=== PATIENT | female | born 1950 | race Caucasian/White ===

== ENCOUNTER → 2023-03-06 08:37 | Outpatient (CLI) | payer MEDICARE, SELFPAY ==
--- NOTE | ~2023-03-06 | XR_ITS ---
EXAMINATION: HAND-JOEL ARTHRITIS 3+VIEWS DATE: 03/06/2023 09:30 INDICATION: Rheumatoid arthritis TECHNIQUE: Posteroanterior, lateral, and oblique views of the left and of the right hands as well as a ballcatchers view of both hands were obtained. COMPARISON: None. FINDINGS: Bone alignment is normal at the bilateral hands and wrists. Diffuse osteopenia. No fracture. Polyarti cular osteoarthritis characterized by nonuniform joint space narrowing or tiny marginal osteophytes. This is mild at the bilateral distal radioulnar, right first carpometacarpal and multiple predominant ly distal interphalangeal joints. No erosions to suggest inflammatory arthritis such as rheumatoid. S oft tissues are unremarkable. IMPRESSION: 1. Typical distribution of mild polyarticular osteoarthritis at the bilateral hands and wrists. No er osions to suggest inflammatory arthritis. Reviewed, dictated and finalized at location A. IMPRESSION: 1. Typical distribution of mild polyarticular osteoarthritis at the bilateral h ands and wrists. No erosions to suggest inflammatory arthritis.
--- NOTE | ~2023-03-06 | XR_ITS ---
XR elbow RT min 3V 03/06/2023 09:30 INDICATION: Rheumatoid arthritis PROCEDURE: 4 views right elbow COMPARISON: No prior studies for comparison. FINDINGS: Fracture, dislocation or subluxation is not identified. No significant joint effusion. The soft tissues appear within normal limits. No foreign bodies are identified. IMPRESSION: 1: NO ACUTE BONE OR JOINT ABNORMALITY IDENTIFIED. Reviewed, dictated and finalized at location L.
--- NOTE | ~2023-03-06 | XR_ITS ---
EXAMINATION: XR chest 2V 03/06/2023 09:30 INDICATION: Rheumatoid arthritis PROCEDURE: 2 view chest COMPARISON: No prior studies for comparison. FINDINGS: The lungs are clear. The cardiomediastinal silhouette is within normal limits. There are no pleural effusions. There is no pneumothorax suspected. There are lower thoracic vertebral compre ssion fractures, likely chronic. IMPRESSION: 1: NO ACUTE CARDIOPULMONARY DISEASE. Reviewed, dictated and finalized at location L.
== END ==
DX: M06.9 Rheumatoid arthritis, unspecified (principal); M19.042 Primary osteoarthritis, left hand; M19.041 Primary osteoarthritis, right hand
CPT/HCPCS: 71046; 73080; 73130

== ENCOUNTER → 2023-09-02 09:32 | Outpatient (CLI) | payer MEDICARE, SELFPAY ==
--- NOTE | ~2023-09-02 | DEXA_ITS ---
Bone Density Report Name: ALVARO JOHN Age: 73 Sex: Female Ethnicity: White Date of : 1950 Indication: postmenopausal; screening for osteoporosis; height loss; prior fracture; asthma or emphysema; hysterectomy; rheumatoid arthritis; Referring Provider: Dimitri King Study: Bone densitometry was performed. Exam Date: September 02, 2023 Accession number: [id number] Bone Density: Region BMD T-score Z-score Classification AP Spine (L1-L4) 0.594 -4.1 -1.8 Osteoporosis Femoral Neck (Left) 0.473 -3.4 -1.4 Osteoporosis Total Hip (Left) 0.581 -3.0 -1.3 Osteoporosis Femoral Neck (Right) 0.451 -3.6 -1.6 Osteoporosis Total Hip (Right) 0.583 -2.9 -1.3 Osteoporosis Total Hip Mean 0.582 -3.0 -1.3 Osteoporosis World Health Organization criteria for BMD impression classify patients as: Normal (T-score at or above -1.0), Osteopenia (T-score between -1.0 and -2.5), or Osteoporosis (T-score at or below -2.5). 10-year Fracture Risk: FRAX not reported because: Some T-score for Spine Total or Hip Total or Femoral Neck at or below -2.5 Prior hip or vertebral fracture Clinical Information Provided by Patient: Have had a previous hip or vertebral fracture Has had a low trauma fracture Has rheumatoid arthritis Has the following medical conditions: Asthma or Emphysema, Hysterectomy Patient maximum height was 64.0 Menopause Age: 27 No regular weight bearing exercise Drinks caffeinated beverages Onset of menses at age 15 Number of children 1 Impression: The patient has established osteoporosis, based on the Total Spine T-score and the existence of a prior fracture. The patient has risk factors, including: previous fracture. Discussion: HIGH RISK OF FRACTURE. BONE DENSITY IS UNDESIRABLY LOW AT ONE OR MORE SKELETAL SITES, CONSISTENT WITH POSTMENOPAUSAL OSTEOPOROSIS. This patient's lowest T-score, in a patient who has previously fractured, meets the World Health Organization's (WHO) criteria for severe osteoporosis. In untreated patients, the risk of osteoporotic fracture increases approximately two-fold for each 1.0 SD decrease in T-score. Low bone density is not the only risk factor for fracture; also consider factors such as patient's age, frailty or poor health, risk of falling, risk of injury, previous osteoporotic fracture, family history of osteoporosis, cigarette smoking, low body weight, etc. Not everyone with low bone mineral density has osteoporosis; osteomalacia and other metabolic bone disorders should also be considered. Patients who have osteoporosis should be evaluated for specific diseases and conditions (secondary causes) that may cause or contribute to bone loss. The [place] [employer]ocr[employer] (AACE) and National Osteoporosis Foundation (NOF) recommend pharmacologic intervention for all
== END ==
PROVIDERS: PCP Physician Assistant; Visit Provider Physician Assistant
DX: M81.0 Age-related osteoporosis without current pathological fracture (principal); Z78.0 Asymptomatic menopausal state
CPT/HCPCS: 77080

== ENCOUNTER 2023-12-30 10:31 | Outpatient (CLI) | payer MEDICARE, SELFPAY ==
--- NOTE | ~2023-12-30 | MM_ITS ---
EXAMINATION: MM screening [place] [facility] w jairon HISTORY: Screening TECHNIQUE: Craniocaudal and mediolateral oblique 3-D tomosynthesis images were obtained and synthetic 2-D images were generated. CAD analysis was submitted and interpreted. COMPARISON: No prior mammogram is available for comparison at this institution. BREAST PARENCHYMAL COMPOSITION: The breasts are almost entirely fatty. FINDINGS: There is no evidence of suspicious mass, calcification, or architectural distortion to sugg est malignancy in either breast. There has been no suspicious interval change. IMPRESSION: 1. No mammographic evidence of malignancy. 2. Recommend routine screening mammography in one year. BI-RADS Category 1: Negative Reviewed, dictated and finalized at location B.
== END 2023-12-30 10:32 ==
LOC: MICIMG 10:32
PROVIDERS: PCP Internal Medicine; Visit Provider Physician Assistant
DX: Z12.31 Encounter for screening mammogram for malignant neoplasm of breast (principal)
CPT/HCPCS: 77063; 77067

== ENCOUNTER 2024-01-22 08:48 | Outpatient (NON) | payer MEDICARE, SELFPAY | END 2024-01-22 08:49 | disposition home or self-care (01) | PROVIDERS: PCP Internal Medicine; Visit Provider Internal Medicine Gastroenterology | DX: K22.70 Barrett's esophagus without dysplasia (principal); K21.00 Gastro-esophageal reflux disease with esophagitis, without bleeding | CPT/HCPCS: 88305 ==

== ENCOUNTER 2024-01-22 09:57 | Day surgery (SDC) | payer MEDICARE, SELFPAY ==
[2024-01-19 06:28] VITALS: BMI 31.7
[2024-01-19 10:24] VITALS: BMI 33.8
[2024-01-22 10:31] VITALS: BP 131/72; PULSE 74; RESP 15; TEMP 37.4; O2SAT 98
[2024-01-22] MEDS: LACTATED RINGERS 1,000 ML 150 ML IV CONT (10:34)
[2024-01-22 10:42] LABS: Glucose Point of Care 114 mg/dl (65-105)
--- NOTE | 2024-01-22 11:07 | PM.HPGS ---
History of Present Illness History of Present Illness Consent: Risks, benefits, and alternatives have been discussed and questions answered. Patient agrees to proceed with procedure. Chief complaint: Wood's Esophagus Narrative: Juvenal Kumar is a 73 year old female presents for screening EGD. 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 Previously treated him is very. Patient reports she has also had esophageal stricture requiring dilatation in the past. Currently maintained on pantoprazole 40mg p.o. b.i.d.. She and heartburn despite this medication. She denies any ongoing dysphagia. Family history is noncontributory. Is had follow-up EGDs at 3 year intervals. No old records are available for review. Patient presents today for screening EGD. Review of Systems Review of Systems: All systems reviewed & are unremarkable except as noted in HPI and below PMFSH Past Medical History Medical History (Updated 12/29/23 @ 11:05 by Ziggy Marcano DO) Allergies Anemia Barretts esophagus Cataract Compressed vertebrae COPD (chronic obstructive pulmonary disease) Diabetes GERD (gastroesophageal reflux disease) Hypertension IBS (irritable bowel syndrome) Retina disorder Rheumatoid arthritis Surgical History Surgical History H/O detached retina repair Hx of cataract surgery Family History Family History Father Brain cancer Mother Diabetes mellitus Hypertension Sibling Hypertension Cerebrovascular accident Alcoholism Social History Social History Years smoked: 50 Smoking status: Former smoker Tobacco type: cigarettes Alcohol intake: never Substance use: unknown Substance use type: does not use Lack of Transportation: No Lack of Food: Never True Current Housing: I Have Housing Concerned About Future Housing: No Difficulty Paying Gas/Electric Bills: No Difficulty Paying for Meds: No Currently Unemployed: No Education: Associate Degree Difficulty w/ Childcare or Family Care: No Living arrangements: alone Spiritual care concerns: No Meds Home Medications and Allergies Home Medications Medication Instructions Recorded Confirmed Type methotrexate sodium 2.5 mg tablet 2.5 mg PO WEEKLY #30 tabs 01/01/23 01/22/24 Rx acetaminophen 500 mg tablet 1,000 mg PO Q6H PRN pain #120 tabs 12/09/23 01/22/24 Rx (Tylenol Extra Strength) amlodipine 10 mg tablet 10 mg PO DAILY #90 tabs 12/09/23 01/22/24 Rx ascorbic acid (vitamin C) 1,000 mg 1 g PO DAILY #90 caps 12/09/23 01/22/24 Rx capsule atorvastatin 40 mg tablet (Lipitor) 40 mg PO QHS #90 tabs 12/09/23 01/22/24 Rx blood-glucose meter,continuous #1 ea 12/09/23 12/29/23 Rx (Dexcom G6 [employer]) blood-glucose sensor (Dexcom G6 #3 ea 12/09/23 12/29/23 Rx Sensor device) blood-glucose transmitter (Dexcom #1 ea 12/09/23 12/29/23 Rx G6 Transmitter device) cyclobenzaprine 10 mg tablet 10 mg PO TID PRN muscle spasm #90 12/09/23 01/22/24 Rx tabs escitalopram oxalate 10 mg tablet 10 mg PO DAILY #90 tabs 12/09/23 01/22/24 Rx (Lexapro) ferrous sulfate 325 mg (65 mg 325 mg PO BID #180 tabs 12/09/23 01/22/24 Rx iron) tablet gabapentin 300 mg capsule 300 mg PO TID #270 caps 12/09/23 01/22/24 Rx ibandronate 150 mg tablet 150 mg PO MONTHLY #3 tabs 12/09/23 01/22/24 Rx metformin 500 mg tablet 500 mg PO DAILY #90 tabs 12/09/23 01/22/24 Rx pantoprazole 40 mg tablet,delayed 40 mg PO BID #180 tabs 12/09/23 01/22/24 Rx release (Protonix) tramadol 50 mg tablet 50 mg PO Q8H PRN pain #90 tabs 12/09/23 01/22/24 Rx valsartan 320 1 tablet PO DAILY #90 tabs 12/09/23 01/22/24 Rx mg-hydrochlorothiazide 12.5 mg tablet aspirin 81 mg tablet 81 mg PO DAILY 01/19/24 01/22/24 History folic acid 1 mg tablet 1 mg PO BID 01/19/24 01/22/24 Histo
--- NOTE | 2024-01-22 11:11 | WPDANESEPPF ---
Anes - Initial Pre Proc Eval Procedure: Operation Date: 01/22/24 12:00 Proposed Procedures p Esophagogastroduodenoscopy - Chavez Vance MD Date/Time: 01/22/24 11:11 Surgeon: Chavez Vance MD Pre Op Diagnosis: Wood's Esophagus Patient Data Age: 73 Gender: F Height: 1.57 m Weight: 82 kg Last Vital Signs Temp 37.4 C 01/22/24 10:31 Pulse 74 01/22/24 10:31 Resp 15 01/22/24 10:31 BP 131/72 01/22/24 10:31 Pulse Ox 98 01/22/24 10:31 O2 Del Method Room Air 01/22/24 10:31 Allergies Allergy/AdvReac Type Severity Reaction Status Date / Time hydromorphone [From Dilaudid] Allergy Severe Vomiting Verified 01/22/24 10:30 irbesartan [From Avalide] Allergy Severe Vomiting Verified 01/22/24 10:30 pravastatin Allergy Severe Anaphylaxis Verified 01/22/24 10:30 Home Medications Medication Instructions Recorded Confirmed Type methotrexate sodium 2.5 mg tablet 2.5 mg PO WEEKLY #30 tabs 01/01/23 01/22/24 Rx acetaminophen 500 mg tablet 1,000 mg PO Q6H PRN pain #120 tabs 12/09/23 01/22/24 Rx (Tylenol Extra Strength) amlodipine 10 mg tablet 10 mg PO DAILY #90 tabs 12/09/23 01/22/24 Rx ascorbic acid (vitamin C) 1,000 mg 1 g PO DAILY #90 caps 12/09/23 01/22/24 Rx capsule atorvastatin 40 mg tablet (Lipitor) 40 mg PO QHS #90 tabs 12/09/23 01/22/24 Rx blood-glucose meter,continuous #1 ea 12/09/23 12/29/23 Rx (Dexcom G6 [employer]) blood-glucose sensor (Dexcom G6 #3 ea 12/09/23 12/29/23 Rx Sensor device) blood-glucose transmitter (Dexcom #1 ea 12/09/23 12/29/23 Rx G6 Transmitter device) cyclobenzaprine 10 mg tablet 10 mg PO TID PRN muscle spasm #90 12/09/23 01/22/24 Rx tabs escitalopram oxalate 10 mg tablet 10 mg PO DAILY #90 tabs 12/09/23 01/22/24 Rx (Lexapro) ferrous sulfate 325 mg (65 mg 325 mg PO BID #180 tabs 12/09/23 01/22/24 Rx iron) tablet gabapentin 300 mg capsule 300 mg PO TID #270 caps 12/09/23 01/22/24 Rx ibandronate 150 mg tablet 150 mg PO MONTHLY #3 tabs 12/09/23 01/22/24 Rx metformin 500 mg tablet 500 mg PO DAILY #90 tabs 12/09/23 01/22/24 Rx pantoprazole 40 mg tablet,delayed 40 mg PO BID #180 tabs 12/09/23 01/22/24 Rx release (Protonix) tramadol 50 mg tablet 50 mg PO Q8H PRN pain #90 tabs 12/09/23 01/22/24 Rx valsartan 320 1 tablet PO DAILY #90 tabs 12/09/23 01/22/24 Rx mg-hydrochlorothiazide 12.5 mg tablet aspirin 81 mg tablet 81 mg PO DAILY 01/19/24 01/22/24 History folic acid 1 mg tablet 1 mg PO BID 01/19/24 01/22/24 History Laboratory Tests 01/22/24 10:37 POC Capillary Glucose 114 H mg/dl (65-105) Patient hx anesthesia problems: none Family hx anesthesia problems: none Results Review: All pre-operative results and documents have been reviewed as part of the pre-operative evaluation. [facility] Past Medical History Medical History Allergies Anemia Barretts esophagus Cataract Compressed vertebrae COPD (chronic obstructive pulmonary disease) Diabetes GERD (gastroesophageal reflux disease) Hypertension IBS (irritable bowel syndrome) Retina disorder Rheumatoid arthritis Surgical History Surgical History H/O detached retina repair Hx of cataract surgery Family History Family History Father Brain cancer Mother Diabetes mellitus Hypertension Sibling Hypertension Cerebrovascular accident Alcoholism Social History Social History Years smoked: 50 Smoking status: Former smoker Tobacco type: cigarettes Alcohol intake: never Substance use: unknown Substance use type: does not use Lack of Transportation: No Lack of Food: Never True Current Housing: I Have Housing Concerned About Future Housing: No Difficulty Paying Gas/Electric Bills: No Difficulty Paying for Meds: No Currently
[2024-01-22 11:59] VITALS: BP 139/117; PULSE 93; RESP 20; O2SAT 98
[2024-01-22 12:09] VITALS: BP 123/69; PULSE 86; RESP 20; O2SAT 100
[2024-01-22 12:19] VITALS: BP 134/84; PULSE 77; RESP 22; O2SAT 100
--- NOTE | 2024-01-22 12:30 | WPDANESPN ---
Anes - Prog Note Post-Op Date/Time: 01/22/24 12:30 Cardiovascular status: normal Respiratory status: normal Airway patency: baseline Mental status: baseline Post-Op hydration status: normal Vital Signs: Last Vital Signs Temp 37.4 C 01/22/24 10:31 Pulse 77 01/22/24 12:19 Resp 22 H 01/22/24 12:19 BP 134/84 01/22/24 12:19 Pulse Ox 100 01/22/24 12:19 O2 Del Method Room Air 01/22/24 12:19 Pain Score (VAS): 0/10 I/O: Intake & Output 01/21/24 01/22/24 01/22/24 23:59 07:59 15:59 Intake Total 300 Balance 300 01/22/24 10:37 POC Capillary Glucose 114 H Patient Feedback: Patient satisfied with anesthetic care.
== END 2024-01-22 12:31 | disposition home or self-care (01) ==
PROVIDERS: PCP Internal Medicine; Visit Provider Internal Medicine Gastroenterology
PROC: 0DJ08ZZ Inspection of Upper Intestinal Tract, Via Natural or Artificial Opening Endoscopic (ICD-10-PCS; CPT 43235; principal; 2024-01-22 12:00)
DX: K22.70 Barrett's esophagus without dysplasia (principal); K44.9 Diaphragmatic hernia without obstruction or gangrene; K22.10 Ulcer of esophagus without bleeding
CPT/HCPCS: 43239

== ENCOUNTER 2024-12-31 10:04 | Outpatient (CLI) | payer MEDICARE, SELFPAY ==
--- NOTE | ~2024-12-31 | MM_ITS ---
EXAMINATION: MM screening [place] [facility] w jairon HISTORY: Screening TECHNIQUE: Craniocaudal and mediolateral oblique 3-D tomosynthesis images were obtained and synthetic 2-D images were generated. CAD analysis was submitted and interpreted. COMPARISON: 12/30/2023 BREAST PARENCHYMAL COMPOSITION: Not Dense. The breasts are almost entirely fatty. FINDINGS: There is no evidence of suspicious mass, calcification, or architectural distortion to sugg est malignancy in either breast. There has been no suspicious interval change. IMPRESSION: 1. No mammographic evidence of malignancy. 2. Recommend routine screening mammography in one year. BI-RADS Category 1: Negative Reviewed, dictated and finalized at location A.
== END 2024-12-31 10:05 | disposition home or self-care (01) ==
LOC: MICIMG 10:05
PROVIDERS: PCP Internal Medicine; Visit Provider Internal Medicine
DX: Z12.31 Encounter for screening mammogram for malignant neoplasm of breast (principal)
CPT/HCPCS: 77063; 77067

== ENCOUNTER 2025-02-17 02:49 | Day surgery (SDC) | payer MEDICARE, SELFPAY ==
[2025-02-04 14:24] VITALS: BMI 32.5
--- OUTSIDE RECORDS SUMMARY | 2025-02-17 02:52 | XMS_ITS | Clinical Summary ---
Author Organization [facility] Address [address] [place] [address] Care Team Providers Care Admissions Specialist Name Role Phone Dimitri King Primary Care Provider Allergies Active Allergy Reactions Criticality Noted Date Comments Irbesartan-Hydrochlorothiazide Vomiting Low 09/23 Hydromorphone Vomiting Low 09/24/2023 Pravastatin Swelling Medium 09/24/2023 Throat swelling Medications amLODIPine (NORVASC) 10 mg tablet Take 1 tablet (10 mg total) by mouth daily 4 Active atorvastatin (LIPITOR) 40 mg tablet Take 1 tablet (40 mg total) by mouth nightly at bedtime 4 Active cyclobenzaprine (FLEXERIL) 10 mg tablet Take 1 tablet (10 mg total) by mouth 3 (three) times a day as needed for muscle spasms 3 Active escitalopram (LEXAPRO) 10 mg tablet Take 1 tablet (10 mg total) by mouth daily 4 Active FeroSuL 325 mg (65 mg iron) tablet Take 1 tablet (325 mg total) by mouth 2 (two) times a day 3 Active gabapentin (NEURONTIN) 300 mg capsule Take 1 capsule (300 mg total) by mouth 3 (three) times a day 3 Active metFORMIN (GLUCOPHAGE) 500 mg tablet Take 1 tablet (500 mg total) by mouth daily 4 Active traMADoL (ULTRAM) 50 mg tablet Take by mouth every 8 (eight) hours as needed 3 Active valsartan-hydroch lorothiazide (DIOVAN-HCT) 320-12.5 mg per tablet Take 1 tablet by mouth daily 4 Active dexlansoprazole (DEXILANT) 60 mg capsule Take 1 capsule (60 mg total) by mouth daily 5 Active denosumab (PROLIA) 60 mg/mL syringe 5 Active famotidine (PEPCID) 20 mg tablet Take 1 tablet (20 mg total) by mouth daily Active aluminum hydroxide - magnesium carbonate (GAVISCON) suspension 95 MG-358 mg/15 mL nightly Acti ve methotrexate, PF, 25 mg/mL preservative free injectionIndicati ons:Rheumatoid Arthritis Inject 0.8 mL (20 mg total) under the skin every 7 days 10.28 mL 1 5 Active folic acid (FOLVITE) 1 mg tablet Take 2 tablets (2 mg total) by mouth daily 180 tablet 1 5 08/14/19 26 Active NexIUM 40 mg capsule 02/15/20 25 Discontinu ed(Patient Reported) folic acid (FOLVITE) 1 mg tablet Take 2 tablets (2,000 mcg total) by mouth daily 180 tablet 1 5 02/16/20 25 Discontinu ed(Reorder ) methotrexate, PF, 25 mg/mL preservative free injectionIndicati ons:Rheumatoid Arthritis Inject 0.8 mL (20 mg total) under the skin every 7 days 9.6 mL 1 5 02/16/20 25 Discontinu ed(Reorder ) Active Problems Problem Noted Date Diagnosed Date Rheumatoid arthritis involvi ng multiple sites with positive rheumatoid factor 02/14/2025 Encounters Date Type Department Care Team Description 02/15/2025 11:25 AM CDT Lab [facility] [place] [address] High risk medication use; Rheumatoid arthritis involving multiple sites, unspecified whether rheumatoid factor present (HCC) 02/15/2025 10:15 AM CDT Office Visit [facility] Rheumat[facility] 5[address] [place] [address] [place] [address] Mercedes Berrios MD High risk medication use (Primary Dx); Rheumatoid arthritis involving multiple sites, unspecified whether rheumatoid factor present (HCC); Rheumatoid arthritis involving multiple sites with positive rheumatoid factor (HCC) from Last 3 Months Immunizations Immunization Administration Dates Next Due COVID-19 mRNA ([employer]) 0.3 m L (30 mcg) vaccine (12 years and up) 05/05/2023 Influenza, Quadrivalent, Hig h Dose, Preservative Free, Intrr 04/21/2023,05/03/2022 Influenza, Quadrivalent, Spl it, Preservative Free, Intramuscular 07/23/2021 Moderna SARS-CoV-2 Monovalen t Vaccination (12+ YRS) 11/23/2021,05/10/2021,09/29/2020,09/01 Moderna Sars-cov-2 Bivalent Vaccine 50 Mcg/0.5 mL (12+ YRS)-Blue/[place] 05/10/2022 Pneumococcal Conjugate Pcv20 04/21/2023 RSV Vaccine, Pref, Recombina nt, Subunit, Adjuvanted, PF, IM (Arexvy) 07/01/2023 Surgical History Surgery Date Site/Laterality Comments CATARACT EXTRACTION 07/14/2022 - 07/13/2023 Right September 2022 CATARACT EXTRACTION 07/14/2022 - 07/13/2023 Left October 2022 RETINAL DETACHMENT SURGERY 07/14/2022 - 07/13/2023 Left October 2022 ESOPHAGEAL DILATION x3 February 2021-July HYSTERECTOMY 07/14/1977 - 07/13/1978 Social History Tobacco Use Types Packs/Day Years Used Date Smoking Tobacco: Former Cigarettes Tobacco Cessation:Counseling Given: Not Answered Comments Unknown Sex and Gender Information Value Date Recorded Sex Assigned at Not on file Legal Sex Female 5:18 PM [employer] Gender Identity Not on file Sexual Orientation Not on file Obstetrics History Last Filed Vital Signs Vital Sign Reading Time Taken Comments Blood Pressure 145/81 02/15/2025 10:03 AM CDT Pulse 69 02/15/2025 10:03 AM CDT Temperature 36.8 C (98.2 F) 10/01/2024 8:53 AM CDT Respiratory Rate - - Oxygen Saturation 96% 02/15/2025 10:03 AM CDT Inhaled Oxygen Concentration - - Weight 87.2 kg (192 lb 3.2 oz) 02/15/2025 10:03 AM CDT Height 162.6 cm (5' 4) 02/15/2025 10:03 AM CDT Body Mass Index 32.99 02/15/2025 10:03 AM CDT Plan of Treatment Health Maintenance Due Date Last Done Comments Breast Cancer Screening-Mammogram 1950 Colon Cancer Screening-Colonoscopy 1950 Depression Screening 1950 Fall Risk Assessment 1950 Hepatitis C Screening 1950 Osteoporosis Screening-Bone Density Scan 1950 DTaP/Tdap/Td Vaccine (1 - Tdap) 1961 Hepatitis B Screening 1968 Zoster Vaccine (1 of 2) 1969 Well Visit 65+ 2015 Covid-19 Vaccine (8 - Modern a risk ) 10/18/2024 04/19/2024, 05/05/2023, 05/10/2022, Additional history exists Influenza Vaccine (#1) 2025 , 04/21/2023, 05/03/2022, Additional history exists Pneumococcal vaccine 65+ Completed 04/21/2023 Procedures Procedure Name Priority Date/Time Associated Diagnosis Comments EGFR Routine 02/15/2025 10:58 AM CDT High risk medication use DIFFERENTIAL AUTO Routine 02/15/2025 10: 58 AM CDT High risk medication use CBC WITH AUTO DIFFERENTIAL Routine 02/15/2025 10:58 AM CDT High risk medication use ERYTHROCYTE SEDIMENTATION RATE Routine 02/15/2025 10:58 AM CDT High risk medication use Rheumatoid arthritis involving multiple sites, unspecified whether rheumatoid factor present (HCC) CRP (ACUTE PHASE) Routine 02/15/2025 10: 58 AM CDT High risk medication use Rheumatoid arthritis involving multiple sites, unspecified whether rheumatoid factor present (HCC) COMPREHENSIVE METABOLIC PANEL Routine 02/15/2025 10:58 AM CDT High risk medication use from Last 3 Months Results * eGFR (02/15/2025 10:58 AM CDT) [facility] eGFR >90 >=60 mL/min/1. 73 m2 Comment: Interpretive Data Reference Interval Normal >/= 90 mL/min/1.73m2 Mildly decreased* 60 - 89 mL/min/1.73m2 Mildly to moderately decreased 45 - 59 mL/min/1.73m2 Moderately to severely decreased 30 - 44 mL/min/1.73m2 Severely decreased 15 - 29 mL/min/1.73m2 Kidney Failure < 15 mL/min/1.73m2 *Relative to young adult level Estimated glomerular filtration rate is determined by the 2020 CKD-EPI equation recommended by the National Kidney Foundation (A Unifying Approach to GFR Estimation: Recommendations of the NKF-ASK Task Force on Reassessing the Inclusion of Race in Diagnosing Kidney Disease, JASN 2020). The CKD-EPI equation should not be used for patients with unstable renal function and has not been validated in children and those over 70. Current interpretive data was last reviewed 2021. Blood 02/15/2025 10:5 8 AM CDT 02/15/2025 11:56 AM CDT us Mercedes Berrios MD LAB BLOOD ORDERABLES Final Resul t [facility] Department [place] [address] * Differential, auto (02/15/2025 10:58 AM CDT) [facility] Neutrophil abs 1.83 1.50 - 6.50 K/cumm Imm gran abs 0.01 0.00 - 0.10 K/cumm [facility] Lymphocyte abs 1.08 0.80 - 3.30 K/cumm [facility] Monocyte abs 0.37 0.20 - 0.80 K/cumm [facility] Eosinophil abs 0.07 0.00 - 0.50 K/cumm [facility] Basophil abs 0.04 0.00 - 0.10 K/cumm [facility] Neutrophil pct 53.7 % [facility] Comment: Interpretive Data Percent cell count reference ranges are not reported, since discordance with absolute values may lead to misinterpretation of CBC data. Current Interpretive Data was last revised on 2017. Imm gran pct 0.3 % [facility] Comment: Interpretive Data Percent cell count reference ranges are not reported, since discordance with absolute values may lead to misinterpretation of CBC data. Current Interpretive Data was last revised on 2017. Lymphocyte pct 31.8 % [facility] Comment: Interpretive Data Percent cell count reference ranges are not reported, since discordance with absolute values may lead to misinterpretation of CBC data. Current Interpretive Data was last revised on 2017. Monocyte pct 10.9 % [facility] Comment: Interpretive Data Percent cell count reference ranges are not reported, since discordance with absolute values may lead to misinterpretation of CBC data. Current Interpretive Data was last revised on 2017. Eosinophil pct 2.1 % [facility] Comment: Interpretive Data Percent cell count reference ranges are not reported, since discordance with absolute values may lead to misinterpretation of CBC data. Current Interpretive Data was last revised on 2017. Basophil pct 1.2 % [facility] Comment: Interpretive Data Percent cell count reference ranges are not reported, since discordance with absolute values may lead to misinterpretation of CBC data. Current Interpretive Data was last revised on 2017. Blood 02/15/2025 10:5 8 AM CDT 02/15/2025 11:56 AM CDT us Mercedes Berrios MD LAB BLOOD ORDERABLES Final Resul t [facility] Department [place] [address] * (ABNORMAL) CBC with auto differential (02/15/2025 10:58 AM CDT) WBC 3.40(L) 3.80 - 9.90 K/cumm Hgb 13.3 11.9 - 15.5 g/dL [facility] Hct 39.7 35.6 - 45.5 % [facility] Plt 214 150 - 400 K/cumm [facility] MPV 10.5 9.1 - 12.3 fL [facility] RBC 4.07 3.90 - 5.20 M/cumm [facility] MCV 97.5(H) 81.3 - 96.4 fL [facility] MCH 32.7 27.1 - 33.3 pg [facility] MCHC 33.5 32.3 - 35.7 g/dL [facility] RDW CV 13.5 11.1 - 14.9 % [facility] RDW SD 47.8 35.7 - 48.1 fL [facility] NRBC abs 0.00 0.00 - 0.01 K/cumm [facility] Blood 02/15/2025 10:5 8 AM CDT 02/15/2025 11:56 AM CDT us Mercedes Berrios MD LAB BLOOD ORDERABLES Final Resul t Performing Organization Address [facility] de Phone Number [facility] Department [place] [address] * Erythrocyte sedimentation rate (02/15/2025 10:58 AM CDT) Erythrocyte sedimentation rate 7 1 - 30 mm/hr Blood 02/15/2025 10:5 8 AM CDT 02/15/2025 11:56 AM CDT us Mercedes Berrios MD LAB BLOOD ORDERABLES Final Resul t Performing Organization Address [facility] de Phone Number [facility] [place] [address] * CRP (acute phase) (02/15/2025 10:58 AM CDT) CRP 4.2 <=10.0 mg/L Blood 02/15/2025 10:5 8 AM CDT 02/15/2025 11:56 AM CDT us Mercedes Berrios MD LAB BLOOD ORDERABLES Final Resul t Performing Organization Address City/[facility]/ZIP Co de Phone Number [facility] Department [place] [address] * (ABNORMAL) Comprehensive metabolic panel (02/15/2025 10:58 AM CDT) Sodium 135 135 - 145 mmol/L Potassium, pl 4.3 3.3 - 4.9 mmol/L [facility] Chloride 98 97 - 110 mmol/L [facility] CO2 29 22 - 32 mmol/L [facility] Anion gap 8 2 - 15 mmol/L [facility] BUN 9 6 - 25 mg/dL [facility] Creatinine 0.51(L) 0.60 - 1.10 mg/dL [facility] Glucose 111 70 - 199 mg/dL [facility] Comment: Interpretive Data Fasting glucose >/= 126 mg/dl is diagnostic for diabetes. Fasting is defined as no caloric intake for at least 8 hours. Fasting glucose between 100 mg/dl to 125 mg/dl is diagnostic of prediabetes. In a patient with classic symptoms of hyperglycemia or hyperglycemic crisis, a random glucose >/= 200 mg/dl is diagnostic for diabetes. In the absence of unequivocal hyperglycemia, results should be confirmed by repeat testing. The classification and Diagnosis of Diabetes Diabetes Care 202; 46: S19-S40. Current interpretive data was last revised 2022. Calcium 9.4 8.5 - 10.3 mg/dL [facility] Bilirubin, total 0.5 0.1 - 1.2 mg/dL [facility] Protein, pl 7.6 6.5 - 8.5 g/dL [facility] Albumin 4.5 3.5 - 5.0 g/dL [facility] Alk phos 96 40 - 130 Units/L [facility] ALT 13 7 - 45 Units/L [facility] AST 18 10 - 45 Units/L [facility] Blood 02/15/2025 10:5 8 AM CDT 02/15/2025 11:56 AM CDT us Mercedes Berrios MD LAB BLOOD ORDERABLES Final Resul t Performing Organization Address City/[facility]/ZIP Co de Phone Number [facility] Department [place] [address] from Last 3 Months Insurance MEDICARE MEDICARE Care Teams Admissions Specialist Relationship Specialty Start Date End Date Dimitri King PA [address] [place] [address] PCP - General Physician [employer] Manager 05/30/23
[2025-02-17 11:20] VITALS: BP 138/66; PULSE 81; RESP 19; TEMP 36.6; O2SAT 94
[2025-02-17] MEDS: LACTATED RINGERS 1,000 ML 150 ML IV CONT (11:52)
--- NOTE | 2025-02-17 12:06 | P.PNAN_ITS ---
Anes - Initial Pre Proc Eval Procedure: Operation Date: 02/17/25 12:30 Proposed Procedures p Esophagogastroduodenoscopy - Misael Beltran MD Date/Time: 02/17/25 12:06 Surgeon: Misael Beltran MD Pre Op Diagnosis: Diaphragmatic hernia without obstruction or gangre Patient Data Age: 74 Gender: F Height: 1.63 m Weight: 86.3 kg Last Vital Signs Temp 36.6 C 02/17/25 11:20 Pulse 81 02/17/25 11:20 Resp 19 02/17/25 11:20 BP 138/66 02/17/25 11:20 Pulse Ox 94 02/17/25 11:20 O2 Del Method Room Air 02/17/25 11:20 Allergies Allergy/AdvReac Type Severity Reaction Status Date / Time hydromorphone (From Dilaudid) Allergy Severe Vomiting Verified 02/17/25 11:18 irbesartan (From Avalide) Allergy Severe Vomiting Verified 02/17/25 11:18 pravastatin Allergy Severe Anaphylaxis Verified 02/17/25 11:18 Home Medications ?Medication ?Instructions ?Recorded ?Confirmed ?Type methotrexate sodium 2.5 mg tablet 2.5 mg PO WEEKLY #30 tabs 01/01/23 02/04/25 Rx acetaminophen 500 mg tablet 1,000 mg (2 x 500 mg) PO Q6H PRN 12/09/23 02/04/25 Rx (Tylenol Extra Strength) pain #120 tabs ascorbic acid (vitamin C) 1,000 mg 1 g PO DAILY #90 caps 12/09/23 02/17/25 Rx capsule blood-glucose sensor (Dexcom G6 #3 ea 12/09/23 11/19/24 Rx Sensor device) blood-glucose transmitter (Dexcom #1 ea 12/09/23 11/19/24 Rx G6 Transmitter device) blood-glucose,floor runner,cont #1 ea 12/09/23 11/19/24 Rx (Dexcom G6 [employer]) cyclobenzaprine 10 mg tablet 10 mg PO TID PRN muscle spasm #90 12/09/23 02/04/25 Rx tabs tramadol 50 mg tablet 50 mg PO Q8H PRN pain #90 tabs 12/09/23 02/04/25 Rx folic acid 1 mg tablet 1 mg PO BID 01/19/24 02/17/25 History esomeprazole magnesium 40 mg 40 mg PO BID #60 caps 01/22/24 02/17/25 Rx capsule,delayed release valsartan 320 1 tablet PO DAILY #90 tabs 06/08/24 02/17/25 Rx mg-hydrochlorothiazide 12.5 mg tablet amlodipine 10 mg tablet 10 mg PO DAILY #90 tabs 07/02/24 02/17/25 Rx atorvastatin 40 mg tablet (Lipitor) 40 mg PO QHS #90 tabs 07/02/24 02/17/25 Rx gabapentin 300 mg capsule 300 mg PO .COMPLEX #360 caps 08/13/24 02/17/25 Rx dexlansoprazole 60 mg 60 mg PO DAILY #90 caps 11/19/24 02/17/25 Rx capsule,biphase delayed release (Dexilant) IRON 65MG TAB See Rx Instructions .Route 12/15/24 02/04/25 Rx .COMPLEX #90 tabs denosumab 60 mg/mL subcutaneous 60 mg subcut [id number] #1 mL 12/15/24 02/04/25 Rx syringe (Prolia) escitalopram oxalate 10 mg tablet See Rx Instructions .Route 02/14/25 02/17/25 Rx .COMPLEX #90 tabs metformin 500 mg tablet See Rx Instructions .Route 02/14/25 02/17/25 Rx .COMPLEX #90 tabs Patient hx anesthesia problems: none Family hx anesthesia problems: none Results Review: All pre-operative results and documents have been reviewed as part of the pre- operative evaluation. [facility] Past Medical History Medical History Retina disorder Cataract Compressed vertebrae IBS (irritable bowel syndrome) Barretts esophagus Hypertension GERD (gastroesophageal reflux disease) Diabetes COPD (chronic obstructive pulmonary disease) Rheumatoid arthritis Anemia Allergies Surgical History Surgical History Hx of cataract surgery H/O detached retina repair Family History Family History Father Brain cancer Mother Diabetes mellitus Hypertension Sibling Hypertension Cerebrovascular accident Alcoholism Social History Social History Years smoked: 50 Smoking status: Former smoker Tobacco type: cigarettes Alcohol intake: never Substance use: unknown Substance use type: does not use Lack of Transportation: No Lack of Food: Never True Current Housing: I Have Housing Concerned About Future Housing: No Difficulty Paying Gas/Electric Bills: No Difficulty Paying for Meds: No Currently Unemployed: No Education: Associate Degree Difficulty w/ Childcare or Family Care: No Living arrangements: alone Spiritual care concerns: No Anes - Eval Final PreProcedure Day of Procedure 02/17/25 12:06 Patient weight: obese Heart: regular rate and rhythm Lungs: decreased breath sounds Airway: Mallampati scale class III Neurological: alert and oriented Last oral intake: >/= 8 hours ASA classification: III Emergent: no Anesthetic plan: proceed Anesthesia type and monitoring: general GIVS and standard monitoring Results Review: All pre-operative results and documents have been reviewed as part of the pre- operative evaluation. Informed Consent: The patient's anesthetic plan and its attendant risks and benefits were discussed with the patient/family/POA. Questions were solicited and answers provided to the satisfaction of the patient/family/POA.
--- NOTE | 2025-02-17 12:30 | P.HP_ITS ---
History of Present Illness History of Present Illness Consent: Risks, benefits, and alternatives have been discussed and questions answered. Patient agrees to proceed with procedure. Chief complaint: Diaphragmatic hernia without obstruction or gangre Narrative: Juvenal Kumar is a 74 year old female with large hiatal hernia and erosive esophagitis, on ppi, also last EGD 2023 with gee's Review of Systems Review of Systems: All systems reviewed & are unremarkable except as noted in HPI and below PMFSH Past Medical History Medical History Retina disorder Cataract Compressed vertebrae IBS (irritable bowel syndrome) Barretts esophagus Hypertension GERD (gastroesophageal reflux disease) Diabetes COPD (chronic obstructive pulmonary disease) Rheumatoid arthritis Anemia Allergies Surgical History Surgical History Hx of cataract surgery H/O detached retina repair Family History Family History Father Brain cancer Mother Diabetes mellitus Hypertension Sibling Hypertension Cerebrovascular accident Alcoholism Social History Social History Years smoked: 50 Smoking status: Former smoker Tobacco type: cigarettes Alcohol intake: never Substance use: unknown Substance use type: does not use Lack of Transportation: No Lack of Food: Never True Current Housing: I Have Housing Concerned About Future Housing: No Difficulty Paying Gas/Electric Bills: No Difficulty Paying for Meds: No Currently Unemployed: No Education: Associate Degree Difficulty w/ Childcare or Family Care: No Living arrangements: alone Spiritual care concerns: No Meds Home Medications and Allergies Home Medications ?Medication ?Instructions ?Recorded ?Confirmed ?Type methotrexate sodium 2.5 mg tablet 2.5 mg PO WEEKLY #30 tabs 01/01/23 02/04/25 Rx acetaminophen 500 mg tablet 1,000 mg (2 x 500 mg) PO Q6H PRN 12/09/23 02/04/25 Rx (Tylenol Extra Strength) pain #120 tabs ascorbic acid (vitamin C) 1,000 mg 1 g PO DAILY #90 caps 12/09/23 02/17/25 Rx capsule blood-glucose sensor (Dexcom G6 #3 ea 12/09/23 11/19/24 Rx Sensor device) blood-glucose transmitter (Dexcom #1 ea 12/09/23 11/19/24 Rx G6 Transmitter device) blood-glucose,hospital fellow,cont #1 ea 12/09/23 11/19/24 Rx (Dexcom G6 Blow Machine Tender [employer]) cyclobenzaprine 10 mg tablet 10 mg PO TID PRN muscle spasm #90 12/09/23 02/04/25 Rx tabs tramadol 50 mg tablet 50 mg PO Q8H PRN pain #90 tabs 12/09/23 02/04/25 Rx folic acid 1 mg tablet 1 mg PO BID 01/19/24 02/17/25 History esomeprazole magnesium 40 mg 40 mg PO BID #60 caps 01/22/24 02/17/25 Rx capsule,delayed release valsartan 320 1 tablet PO DAILY #90 tabs 06/08/24 02/17/25 Rx mg-hydrochlorothiazide 12.5 mg tablet amlodipine 10 mg tablet 10 mg PO DAILY #90 tabs 07/02/24 02/17/25 Rx atorvastatin 40 mg tablet (Lipitor) 40 mg PO QHS #90 tabs 07/02/24 02/17/25 Rx gabapentin 300 mg capsule 300 mg PO .COMPLEX #360 caps 08/13/24 02/17/25 Rx dexlansoprazole 60 mg 60 mg PO DAILY #90 caps 11/19/24 02/17/25 Rx capsule,biphase delayed release (Dexilant) IRON 65MG TAB See Rx Instructions .Route 12/15/24 02/04/25 Rx .COMPLEX #90 tabs denosumab 60 mg/mL subcutaneous 60 mg subcut [id number] #1 mL 12/15/24 02/04/25 Rx syringe (Prolia) escitalopram oxalate 10 mg tablet See Rx Instructions .Route 02/14/25 02/17/25 Rx .COMPLEX #90 tabs metformin 500 mg tablet See Rx Instructions .Route 02/14/25 02/17/25 Rx .COMPLEX #90 tabs Allergies Allergy/AdvReac Type Severity Reaction Status Date / Time hydromorphone (From Dilaudid) Allergy Severe Vomiting Verified 02/17/25 11:18 irbesartan (From Avalide) Allergy Severe Vomiting Verified 02/17/25 11:18 pravastatin Allergy Severe Anaphylaxis Verified 02/17/25 11:18 Vital Signs Vital Signs - 24 hr 02/17/25 11:20 Temperature 97.8 F Pulse Rate 81 Respiratory Rate 19 Blood Pressure 138/66 Pulse Oximetry 94 Oxygen Delivery Room Air Exam Const: General: comfortable and no acute distress HENMT: Face/Nose/Sinus: Normal nares present Eyes: General: appearance normal, both eyes and all related structures Neck: Neck: no JVD Resp: Auscultation: clear to auscultation bilaterally Cardio: Rate: regular rate Rhythm: regular rhythm GI: Inspection: non-distended GI Palp: Yes Soft to palpation Skin: General skin exam: normal color Neuro: Speech: normal speech Extrem: General: normal to inspection Psych: Mental Status: mental status grossly normal Assessment and Plan Assessment and plan (1) Barretts esophagus: Code(s): K22.70 - Gee's esophagus without dysplasia Status: Acute Assessment and Plan: egd with bx
--- NOTE | 2025-02-17 12:47 | S_PTH ---
PATIENT: Juvenal Kumar LOC: [facility]#:[id number] AGE/SX: 74/F ROOM: RE02/17/[address]: Misael Beltran MD : 1950 BED: DIS: 02/17/2025 SPEC #: [id number] RECD: 02/17/25 13:25 STATUS: BENJAMIN REKareem #: [id number] ELMER: 02/17/25 12:[address]: Misael Beltran DEPT: [facility] Surgical RECD BY: Neisha Marshall ENTERED: 02/17/25 13:26 SP TYPE: Surgical OTHR DR: Ziggy Marcano DO Tissues: A - Esophageal Biopsy B - Esophageal Biopsy C - Esophageal Biopsy Procedures: Hematoxylin and Eosin Stain Gross and Microscopic Level 4
[2025-02-17 12:50] VITALS: BP 101/45; PULSE 73; RESP 18; O2SAT 99
[2025-02-17 13:00] VITALS: BP 115/63; PULSE 80; RESP 18; O2SAT 99
[2025-02-17 13:10] VITALS: BP 139/63; PULSE 72; RESP 17; O2SAT 100
== END 2025-02-17 13:18 | disposition home or self-care (01) ==
PROVIDERS: PCP Internal Medicine; Referring Provider Nurse Practitioner; Visit Provider Internal Medicine Gastroenterology
PROC: 0DJ08ZZ Inspection of Upper Intestinal Tract, Via Natural or Artificial Opening Endoscopic (ICD-10-PCS; CPT 43239; principal; 2025-02-17 12:30)
DX: K22.70 Barrett's esophagus without dysplasia (principal); K21.9 Gastro-esophageal reflux disease without esophagitis; K44.9 Diaphragmatic hernia without obstruction or gangrene; E11.9 Type 2 diabetes mellitus without complications; Z87.891 Personal history of nicotine dependence; E66.9 Obesity, unspecified; Z68.32 Body mass index [BMI] 32.0-32.9, adult
CPT/HCPCS: 43239; 82948; 88305; J2003; J2704; J7120